=== PATIENT | female | born 1940 ===

== ENCOUNTER 2018-04-13 13:35 | Outpatient (CLI) | payer OTHER | END 2018-04-13 13:39 | disposition home or self-care (01) | LOC: SONOGRAMA 13:35 | DX: D05.11 Intraductal carcinoma in situ of right breast (principal); D05.12 Intraductal carcinoma in situ of left breast; N63.14 Unspecified lump in the right breast, lower inner quadrant; N60.11 Diffuse cystic mastopathy of right breast; N60.12 Diffuse cystic mastopathy of left breast; N63.23 Unspecified lump in the left breast, lower outer quadrant ==

== ENCOUNTER 2018-05-08 11:57 | Outpatient (CLI) | payer OTHER | END 2018-05-08 12:03 | disposition home or self-care (01) | LOC: SONOGRAMA 11:57 | DX: C50.412 Malignant neoplasm of upper-outer quadrant of left female breast (principal); C50.112 Malignant neoplasm of central portion of left female breast; N60.11 Diffuse cystic mastopathy of right breast ==

== ENCOUNTER → 2018-06-05 | Day surgery (SDC) | payer OTHER ==
[~2018-06-05] MED LIST: ALTACE10 MG; GLIMEPIRIDE2 MG; HUMULIN 70100 UNIT/2; INDAPAMIDE2.5 MG; NEURONTIN800 MG; PNEU16DI2; ZOCOR40 MG
== END | disposition home or self-care (01) ==
LOC: CIR.AMB 05:55
DX: C50.512 Malignant neoplasm of lower-outer quadrant of left female breast (principal); D05.11 Intraductal carcinoma in situ of right breast; C77.3 Secondary and unspecified malignant neoplasm of axilla and upper limb lymph nodes

== ENCOUNTER 2018-06-08 02:00 | Emergency (ER) | payer OTHER ==
[~2018-06-08] VITALS: Ht 170.2 cm; Wt 83.5 kg
== END 2018-06-08 08:58 | disposition home or self-care (01) ==
LOC: ER 02:00
DX: R06.02 Shortness of breath (principal)